=== PATIENT | male | born 1950 | race Caucasian/White ===

== ENCOUNTER 2017-04-13 14:08 | Inpatient (IN) | payer MEDICAID ==
--- NOTE | 2017-04-13 14:41 | ED Physician Chart ---
ED Chief Complaint/HPI - Patient Information Date Seen:: 04/13/17 Time Seen:: 14:30 Chief Complaint:: dislodged gastroesophageal stent History of Present Illness:: Patient sent here for a dislodged gastroesophageal stent. He states that he has been vomiting slightly. He does feed orally as well as having a G-tube. He states he has not received anything by G-tube in the last 4 days. Historian:: Patient Review:: Transfer documents Reviewed ED Review of Systems - Review of Systems General/Constitutional: No fever, No chills Skin: No skin lesions Head: No headache Eyes: No loss of vision ENT: No earache, No sore throat Neck: No neck pain, No thyromegaly Cardio Vascular: No chest pain Pulmonary: No SOB GI: Nausea, Vomiting G/U: No dysuria, No hematuria Musculoskeletal: No bone or joint pain Endocrine: No polyuria, No polydipsia Psychiatric: Prior psych history Hematopoietic: No bruising Allergic/Immuno: No urticaria Neurological: No syncope, No focal symptoms ED Past Medical History - Past Medical History Past Medical History: HTN, DM, Asthma/COPD, Dementia, Other (status post pneumonia; atherosclerotic heart disease; lung mass; protein/calorie malnutrition; prostate carcinoma; seizures; gastroparesis) Social History: Other (quit smoking in May2016; quit alcohol consumption 20 years ago) Surgical History: PEG/GTube, other (esophagus for bleeding) Psychiatricy History: Dementia Medication: Reviewed ED Physical Exam - Physical Examination Other Gen/Cons comments:: Patient is cachectic; in no acute distress Head: Atraumatic Eyes: Lids, conjuctiva normal, PERRL Skin: Nl inspection, No rash ENMT: External ears, nose nl Neck: No nuchal rigidity Respiratory: Nl effort/Exclusion, Clear to Auscultation Cardio Vascular: RRR, No murmur, gallop, rubs, NL S1 S2 GI: No tenderness/rebounding/guarding, No organomegaly, No hernia, Normal BS's, No mass/bruits, No McBurney tenderness : No CVA tenderness Extremities: No edema Neuro/Psych: No focal deficits ED Labs/Radiology/EKG Results - Lab Results Results: Laboratory Results - last 24 hr 04/13/17 04/13/17 04/13/17 14:41 14:41 14:41 WBC 10.4 RBC 4.15 Hgb 12.2 Hct 36.3 L MCV 87.5 MCH 29.5 MCHC Differential 33.7 RDW 15.9 Plt Count 389 MPV 7.9 Neutrophils % 74.9 Lymphocytes % 16.1 L Monocytes % 8.6 Eosinophils % 0.3 Basophils % 0.1 PT 10.8 INR 1.04 PTT (Actin FS) 26.3 Sodium 135 L Potassium 3.4 L Chloride 93 L Carbon Dioxide 36.3 H Anion Gap 9.1 BUN 44 H Creatinine 0.9 Est GFR ( Amer) > 60.0 Est GFR (Non-Af Amer) > 60.0 BUN/Creatinine Ratio 48.9 Glucose 116 H Calcium 9.9 Magnesium 2.5 - Radiology Results Results: Chest x-ray showed increased interstitial markings and possible 1 cm mass left base ED Septic Shock - . Is Septic Shock (SBP<90, OR Lactate>4 mmol\L) present?: No ED Reassessment (Disposition) - Reassessment Reassessment Condition:: Unchanged - Diagnosis Diagnosis:: Dehydration; hypokalemia; cachexia - Patient Disposition Admitted to:: Med/Surg Spoke to:: Jamil Singh Admitting Medical Physician:: Jamil Singh Condition at Disposition:: Stable, Unchanged
[2017-04-13 14:49] LABS: % BASOPHILS 0.1 % (0.0-2.0); % EOSINOPHILS 0.3 % (0.0-5.0); % LYMPHOCYTES 16.1 % (20.0-50.0); % MONOCYTES 8.6 % (2.0-10.0); % NEUTROPHILS 74.9 % (40.0-80.0); HEMATOCRIT 36.3 % (41.0-60); HEMOGLOBIN 12.2 gm/dL (12-16); MEAN CELL VOLUME 87.5 fl (80-99); MEAN CORPUSCULAR HEMOGLOBIN 29.5 pg (27.0-31.0); MEAN CORPUSCULAR HGB CONC 33.7 pg (28.0-36.0); MEAN PLATELET VOLUME 7.9 fl; NEUTROPHILE ABSOLUTE 7.8 Th/cmm (1.8-8.0); PLATELET COUNT 389 Th/cmm (150-400); RED BLOOD COUNT 4.15 Mil/cmm (3.80-5.80); RED CELL DISTRIBUTION WIDTH 15.9 % (11.5-20.0); WHITE BLOOD COUNT 10.4 Th/cmm (4.8-10.8)
[2017-04-13 15:01] LABS: INR 1.04 (0.5-1.4); PROTHROMBIN TIME (TEST) 10.8 SECONDS (9.5-11.5)
[2017-04-13 15:03] LABS: ANION GAP 9.1 (7.0-16.0); BUN - UREA NITROGEN 44 mg/dL (7-25); BUN/CREATININE RATIO 48.9; CALCIUM SERUM 9.9 mg/dL (8.6-10.3); CARBON DIOXIDE 36.3 mEq/L (21.0-31.0); CHLORIDE 93 mEq/L (98-107); CREATININE - SERUM 0.9 mg/dL (0.7-1.3); GLUCOSE 116 mg/dL (70-105); MAGNESIUM 2.5 mg/dL (1.9-2.7); POTASSIUM SERUM 3.4 mEq/L (3.5-5.1); SODIUM SERUM 135 mEq/L (136-145)
[2017-04-13] MEDS ORDERED: Sodium Chloride 0.9% 1,000 ML IV ONE ×2 (15:19→16:55)
--- NOTE | 2017-04-13 15:24 | Diagnostic Imaging Report ---
CHEST X-RAY: AP view INDICATION: Lung mass COMPARISON: None FINDINGS: Extensive COPD changes seen with mild fullness of the right hilar region and increased density seen along the infrahilar regions. There is increased density also seen along the lower mediastinal regions. Left basal pleural thickening is seen with faint calcifications. Heart size is normal. Atherosclerosis is noted. Degenerative changes of the spine are noted. IMPRESSION: Extensive COPD changes with fullness of the right hilar region. Underlying mass lesion cannot be excluded. Given patient's clinical history further assessment CT examination, preferably with IV contrast is recommended. Increased density right infrahilar region, etiology uncertain.. Findings may have been sequela of previous inflammatory process or possible previous treatment procedure. Other less likely etiologies would include old aspiration. Additional areas of increased density noted along the lower mediastinum again etiology uncertain. CT may also provide additional detail assessment Left basal pleural thickening calcifications. Atherosclerotic vascular disease.
[2017-04-13 20:35] VITALS: BP 90/57
[2017-04-13] MEDS: D5-0.45NS 1,000 ML IV SCH (20:44)
[2017-04-13] MEDS ORDERED: Morphine Sulfate 2 mg/mL 1mL Syr IM PRN (22:18)
[2017-04-13] MEDS ORDERED: Morphine Sulfate 4 mg/mL 1mL Syr IVP PRN (22:20)
[2017-04-14] MEDS: Morphine Sulfate 2 mg/mL 1mL Syr IVP PRN ×4 (00:11→20:15)
[2017-04-14] MEDS: D5-0.45NS 1,000 ML IV SCH ×2 (06:44→18:04)
--- NOTE | 2017-04-14 09:32 | Diagnostic Imaging Report ---
Upper GI series HISTORY: Nausea/vomiting Exam limited to overhead radiographs. The exam demonstrates a markedly dilated proximal and midportion of the thoracic esophagus. There is severe narrowing involving the distal portion of the esophagus. Neoplastic etiology cannot be excluded. Associated aspiration of barium noted into the right and to a lesser degree left bronchial tree regions. There is suggestion of intraluminal density in the upper esophagus that may be related to retained food. Incomplete distention of the stomach. No obvious focal or intraluminal abnormalities are seen. The duodenum and proximal small bowel are not well opacified. Incidentally noted are at the scarring calcination is in the aorta. Scoliosis and severe degenerative changes noted in the spine. Inferior vena cava filter also noted. IMPRESSION: 1. Markedly dilated proximal esophagus associated with severe stricture/narrowing of the distal esophagus. Neoplastic etiology cannot be excluded. 2. Marked aspiration 3. Atherosclerotic vascular changes
[2017-04-14] MEDS ORDERED: VTE Chemical Prophylaxis Screen/Admission MC PRN (10:36)
--- NOTE | 2017-04-14 11:08 | Diagnostic Imaging Report ---
Portable chest x-ray HISTORY: Aspiration Compared with prior exam of 04/13/2017, residual contrast (related to recent upper GI series) is noted within a dilated proximal esophagus. There is again demonstrated a relatively large segment of narrowing of the distal esophagus. Residual contrast noted within the right and left bronchial tree regions associated with aspiration. IMPRESSION: 1. Redemonstration of a dilated proximal esophagus associated with a relatively large segment of narrowing within the distal segment. Associated residual contrast within the right and to a lesser degree left bronchial tree consistent with aspiration.
[2017-04-14] MEDS ORDERED: Docusate Sodium 100 mg/10 mL UD GT PRN (15:57)
[2017-04-14] MEDS ORDERED: Fleet Enema 135 mL RC PRN (15:57)
[2017-04-14] MEDS ORDERED: GLUCAGON HCl 1 MG KIT IM PRN (15:57)
[2017-04-14] MEDS ORDERED: Magnesium Hydroxide (MOM) 30 mL UDC GT PRN (15:57)
--- NOTE | 2017-04-14 16:44 | History & Physical ---
ADMIT DATE: 04/13/2017 CHIEF COMPLAINT: The patient is a 66-year-old male, who presents here for dislodged gastroesophageal stent. The patient has been vomiting ____. The patient has been orally feeding ____ G-tube ____ over the last 4 days. ____. PAST MEDICAL HISTORY: Hypertension, diabetes, asthma, COPD, dementia, pneumonia, heart disease, lung mass, malnutrition, prostate carcinoma, seizure disorder, gastroparesis, dementia. SOCIAL HISTORY: Tobacco use, he quit in ____16, prior history of alcohol abuse ____. Denied IV drug abuse. PAST SURGICAL HISTORY: ____ placement. Esophageal stent placement. PHYSICAL EXAMINATION: GENERAL: The patient is awake, alert, nontoxic in appearance. VITAL SIGNS: On admission, temperature 99.6, pulse 107. ____ respirations 16, 94% on room air. HEENT: Normocephalic, atraumatic. Extraocular movements intact. Oropharynx is clear. NECK: Supple. No thyromegaly. CARDIOVASCULAR: S1, S2. No rubs or gallops. GASTROINTESTINAL: Soft, nontender. Positive bowel sounds. ____. BACK: No midline tenderness. EXTREMITIES: Equal pulses bilaterally. SKIN: Negative. PSYCHIATRIC: Negative. NEUROLOGIC: Intact ____. Neurovascular is intact bilateral extremities. LABORATORY DATA: Hematology: WBC 10.4, hemoglobin 10.2 ____ platelet count of 389. ____ PT 10.8, INR 1.04, ____. Chemistry: Sodium 135, potassium 3.4, chloride 92, bicarbonate 26, ____ BUN 44, creatinine 0.9, GFR is more than 60, glucose 115, calcium 9.9, mag is 2.5. MICROBIOLOGY: Negative. RADIOLOGY: Chest x-ray shows COPD, lung mass lesion could not be excluded. Recommend CT scan for ____ examination. ____ right infrahilar region, left basal pleural thickening, ____ disease. IMPRESSION AND PLAN: The patient admitted to medical/surgical unit. 1. Some cachexia, dehydration. 2. Hyponatremia. 3. Hypokalemia. 4. Azotemia. 5. Hyperglycemia. 6. Gastroesophageal stent malfunction. 7. Diabetes. 8. Asthma. 9. Chronic obstructive pulmonary disease. 10. Dementia. 11. ____ disease, lung mass. 12. Malnutrition. 13. Prostate carcinoma. 14. ____ and gastroparesis. PLAN: The patient will be admitted to medical/surgical unit ____. JOB# [id number]
[2017-04-14] MEDS: INSULIN ASPART SLIDING SCALE 100 UNITS/ML UNIT SUBQ SCH ×2 (17:55→20:31)
[2017-04-14] MEDS: Lactobacillus Rhamnosus 10 Billion CFU Capsule GT SCH (18:07)
[2017-04-14] MEDS ORDERED: DORNASE ALFA 2.5 MG IH SCH (19:00)
[2017-04-14] MEDS: Albuterol/Ipratropium Neb 3 ML AERS HHN SCH ×2 (19:18→23:15)
--- NOTE | 2017-04-14 23:27 | Consultation ---
DATE OF CONSULTATION: 04/14/2017 INPATIENT GASTROINTESTINAL CONSULTATION REFERRING PHYSICIAN: Dr. Singh. REASON FOR CONSULTATION: Nausea and vomiting. HISTORY OF PRESENT ILLNESS: This is a 66-year-old male who comes to the hospital with nausea and vomiting, somewhat a poor historian, but states that he has been able to eat by mouth everyday 3 times a day despite having a G-tube in place; however, he noticed that he is having difficulty swallowing and presented to the hospital for this reason. It is not clear why he has a G-tube and he cannot give me specific details. He did state that in the past, he had such for esophageal problems that it ruptured requiring an operation in [place]. PAST MEDICAL HISTORY: Hypertension, diabetes, asthma, COPD, dementia, pneumonia, lung disease, prostate cancer, seizure disorder, and gastroparesis. PAST SURGICAL HISTORY: PEG tube placement and esophageal repair. FAMILY HISTORY: Noncontributory. SOCIAL HISTORY: Former smoker, tobacco user. No IV drug usage. ALLERGIES: CODEINE and SULFA. CURRENT MEDICATIONS: Morphine and IV fluids. REVIEW OF SYSTEMS: Ten-point review of systems was performed and the pertinent positive was the nausea and vomiting. All other systems were otherwise negative. PHYSICAL EXAMINATION: VITAL SIGNS: Temperature 97.5, breathing 18, pulse of 75, blood pressure is 90/60, satting 96%. GENERAL: In no apparent distress. EYES: Anicteric and normal conjunctivae. HEENT: Normocephalic and atraumatic. Moist mucous membranes. NECK: Soft and supple. CHEST: Clear. No effort. CARDIOVASCULAR: Regular rate and rhythm. ABDOMEN: With a G-tube. SKIN: Warm and dry. EXTREMITIES: Reveal no cyanosis. PSYCHOLOGIC: Alert. LABORATORY DATA: Show white count of 10.4, hemoglobin 12.2, and platelets of 389,000. INR is 1.04. Upper GI series performed showed dilated proximal esophagus associated with severe stricture, narrowing of the distal esophagus, marked aspiration. IMPRESSION: This is a 66-year-old male with nausea, vomiting, likely related to having an esophageal stricture. The patient also has a G-tube, but he does not know why it was placed, and he does not know why they allowed him to eat by mouth. The upper GI series is concerning for the stricture, which could represent a neoplastic process versus inflammatory condition. Endoscopy can be performed. The patient also has some aspiration, so we will check his chest x-ray. PLAN: 1. Continue supportive care. 2. Get a chest x-ray. 3. Consider endoscopy early next week. 4. May consider using G-tube for feeding purposes in the meantime. Thank you for allowing me to participate. Please call me if you have any questions. JOB# [id number]
[2017-04-15] MEDS: Morphine Sulfate 2 mg/mL 1mL Syr IVP PRN ×3 (02:15→15:12)
[2017-04-15] MEDS: Albuterol/Ipratropium Neb 3 ML AERS HHN SCH ×6 (03:36→22:37)
[2017-04-15 06:01] LABS: % BASOPHILS 0.1 % (0.0-2.0); % EOSINOPHILS 0.6 % (0.0-5.0); % LYMPHOCYTES 15.8 % (20.0-50.0); % MONOCYTES 8.6 % (2.0-10.0); % NEUTROPHILS 74.9 % (40.0-80.0); MEAN CELL VOLUME 88.2 fl (80-99); MEAN CORPUSCULAR HEMOGLOBIN 29.8 pg (27.0-31.0); MEAN CORPUSCULAR HGB CONC 33.7 pg (28.0-36.0); MEAN PLATELET VOLUME 7.6 fl; NEUTROPHILE ABSOLUTE 5.5 Th/cmm (1.8-8.0); PLATELET COUNT 332 Th/cmm (150-400); RED CELL DISTRIBUTION WIDTH 15.4 % (11.5-20.0)
[2017-04-15 06:07] LABS: WHITE BLOOD COUNT 7.2 Th/cmm (4.8-10.8)
[2017-04-15 06:08] LABS: HEMOGLOBIN 10.1 gm/dL (12-16)
[2017-04-15 06:19] LABS: ANION GAP 5.8 (7.0-16.0); BUN - UREA NITROGEN 14 mg/dL (7-25); CALCIUM SERUM 8.5 mg/dL (8.6-10.3); CARBON DIOXIDE 30.1 mEq/L (21.0-31.0); CHLORIDE 102 mEq/L (98-107); CREATININE - SERUM 0.5 mg/dL (0.7-1.3); GLUCOSE 105 mg/dL (70-105); SODIUM SERUM 135 mEq/L (136-145)
[2017-04-15 06:23] LABS: POTASSIUM SERUM 2.9 mEq/L (3.5-5.1)
[2017-04-15] MEDS: INSULIN ASPART SLIDING SCALE 100 UNITS/ML UNIT SUBQ SCH ×4 (07:03→20:53)
[2017-04-15] MEDS: D5-0.45NS 1,000 ML IV SCH ×2 (07:16→23:28)
[2017-04-15] MEDS ORDERED: KCL 20mEq/100mL Premix 20 MEQ/100 ML PIGGYBACK IV SCH (07:38)
--- NOTE | 2017-04-15 08:46 | GI Progress Note ---
Subjective - Review of Systems Subjective: NO EVENTS Objective - Results Result Diagrams: 04/15/17 05:18 04/15/17 05:18 Recent Labs: Laboratory Last Values WBC 7.2 Th/cmm (4.8-10.8) D 04/15/17 05:18 RBC 3.40 Mil/cmm (3.80-5.80) L 04/15/17 05:18 Hgb 10.1 gm/dL (12-16) L D 04/15/17 05:18 Hct 30.0 % (41.0-60) L D 04/15/17 05:18 MCV 88.2 fl (80-99) 04/15/17 05:18 MCH 29.8 pg (27.0-31.0) 04/15/17 05:18 MCHC Differential 33.7 pg (28.0-36.0) 04/15/17 05:18 RDW 15.4 % (11.5-20.0) 04/15/17 05:18 Plt Count 332 Th/cmm (150-400) 04/15/17 05:18 MPV 7.6 fl 04/15/17 05:18 Neutrophils % 74.9 % (40.0-80.0) 04/15/17 05:18 Lymphocytes % 15.8 % (20.0-50.0) L 04/15/17 05:18 Monocytes % 8.6 % (2.0-10.0) 04/15/17 05:18 Eosinophils % 0.6 % (0.0-5.0) 04/15/17 05:18 Basophils % 0.1 % (0.0-2.0) 04/15/17 05:18 PT 10.8 SECONDS (9.5-11.5) 04/13/17 14:41 INR 1.04 (0.5-1.4) 04/13/17 14:41 PTT (Actin FS) 26.3 SECONDS (26.0-38.0) 04/13/17 14:41 Sodium 135 mEq/L (136-145) L 04/15/17 05:18 Potassium 2.9 mEq/L (3.5-5.1) L* 04/15/17 05:18 Chloride 102 mEq/L (98-107) 04/15/17 05:18 Carbon Dioxide 30.1 mEq/L (21.0-31.0) 04/15/17 05:18 Anion Gap 5.8 (7.0-16.0) L 04/15/17 05:18 BUN 14 mg/dL (7-25) 04/15/17 05:18 Creatinine 0.5 mg/dL (0.7-1.3) L 04/15/17 05:18 Est GFR ( Amer) > 60.0 ml/min (>90) 04/15/17 05:18 Est GFR (Non-Af Amer) > 60.0 ml/min 04/15/17 05:18 BUN/Creatinine Ratio 28.0 04/15/17 05:18 Glucose 105 mg/dL (70-105) 04/15/17 05:18 POC Glucose 95 MG/DL (70 - 105) 04/15/17 06:03 Calcium 8.5 mg/dL (8.6-10.3) L 04/15/17 05:18 Magnesium 2.5 mg/dL (1.9-2.7) 04/13/17 14:41 - Physical Exam Vitals and I&O: Vital Signs Temp 96.9 F 04/15/17 07:34 Pulse 70 04/15/17 07:34 Resp 18 04/15/17 07:34 BP 90/49 04/15/17 07:34 Pulse Ox 100 04/15/17 07:34 Intake & Output 04/14/17 04/15/17 04/15/17 18:59 06:59 18:59 Intake Total 1000 1000 Output Total 300 Balance 1000 700 Weight (lbs) 53.524 kg 58.967 kg Intake: Intake, IV Amount 1000 1000 D5-0.45NS 1,000 ml @ 100 1000 1000 mls/hr IV .Q10H [facility] Rx#: [id number] Oral 0 Output: Urine 300 Other: # Voids 1 # Bowel Movements 0 Active Medications: Current Medications Acetaminophen (Tylenol 650mg/20.3ml Suspension) 325 mg GT Q4HR PRN PRN Reason: Pain (Mild) Stop: 06/13/17 15:56 Acetaminophen/Hydrocodone Bitart ([place] 10 Mg/325 Mg) 1 tab GT Q4HR PRN PRN Reason: Pain (Severe) Stop: 06/13/17 15:56 Albuterol/Ipratropium (Duoneb Neb) 3 ml HHN Q4HRT [facility] Stop: 06/13/17 18:59 Last Admin: 04/15/17 07:07 Dose: 3 ml Ascorbic Acid (Vitamin C) 500 mg GT BID [facility] Stop: 06/13/17 16:59 Last Admin: 04/14/17 18:04 Dose: 500 mg Bisacodyl (Dulcolax 10 Mg Supp) 10 mg RC PRN PRN PRN Reason: Constipation Stop: 06/13/17 15:56 Dextrose (Glutose 40%) 37 gm PO PRN PRN PRN Reason: BS<60 Docusate Sodium (Colace) 100 mg GT BID PRN PRN Reason: Constipation Famotidine (Pepcid) 10 mg GT BID [facility] Stop: 06/13/17 16:59 Last Admin: 04/14/17 18:04 Dose: 10 mg Gabapentin (Neurontin) 100 mg PO TID [facility] Stop: 06/13/17 20:59 Last Admin: 04/14/17 20:16 Dose: Not Given Glucagon (Glucagen) 1 mg IM PRN PRN PRN Reason: hypoglycemia Heparin Sodium (Porcine) (Heparin) 5,000 units SUBQ Q12H [facility] Stop: 06/13/17 20:59 Last Admin: 04/14/17 20:14 Dose: 5,000 units Hydralazine HCl (Apresoline) 10 mg GT Q3HR PRN PRN Reason: BP MAINTENANCE (PER PROTOCOL) Stop: 06/13/17 15:56 Dextrose/Sodium Chloride (D5-0.45ns) 1,000 mls @ 100 mls/hr IV .Q10H [facility] Stop: 06/12/17 20:31 Last Admin: 04/15/17 07:16 Dose: 100 mls/hr Potassium Chloride (Potassium Chloride) 20 meq in 100 mls @ 50 mls/hr IV Q2H [facility] Stop: 04/15/17 11:37 Insulin Aspart (Novolog Insulin Sliding Scale) 0 units SUBQ ACHS [facility] PRN Reason: Protocol Stop: 06/13/17 16:29 Last Admin: 04/15/17 07:03 Dose: Not Given Lactobacillus Rhamnosus (Culturelle) 1 each GT DAILY [facility] Stop: 06/13/17 16:59 Last Admin: 04/14/17 18:07 Dose: 1 each Magnesium Hydroxide (Milk Of Magnesia) 30 ml GT DAILY PRN PRN Reason: Constipation Stop: 06/13/17 15:56 Metoclopramide HCl (Reglan) 10 mg PO Q6HR [facility] Stop: 06/13/17 17:59 Last Admin: 04/15/17 07:16 Dose: 10 mg Miscellaneous (Vte Chemical Prophylaxis Screen/ Admission) 1 ea MC PRN PRN PRN Reason: PROTOCOL Stop: 06/13/17 10:35 Miscellaneous (Acetaminophen/Pamabrom [Cramp Tablet]) 1 tab GT DAILY [facility] Stop: 06/14/17 08:59 Miscellaneous (Dornase Nick [Pulmozyme]) 2.5 mg IH Q6HRT [facility] Stop: 06/13/17 18:59 Morphine Sulfate (Morphine) 4 mg IVP Q6HR PRN PRN Reason: Severe Pain Stop: 06/12/17 22:19 Morphine Sulfate (Morphine) 2 mg IVP Q6HR PRN PRN Reason: MODERATE PAIN Stop: 06/12/17 22:17 Last Admin: 04/15/17 08:35 Dose: 2 mg Ondansetron HCl (Zofran Odt) 4 mg PO Q6H PRN PRN Reason: Nausea / Vomiting Stop: 06/13/17 15:59 Sodium Chloride (Saline Flush) 10 ml IV QSHIFT [facility] Stop: 06/13/17 19:59 Last Admin: 04/15/17 08:37 Dose: 10 ml Sodium Phosphate (Fleet Enema) 118 ml RC PRN PRN PRN Reason: Constipation Stop: 06/13/17 15:56 Assessment/Plan - Assessment Assessment: 66 YO MALE WITH DYSPHAGIA HAD G TUBE BUT APPARENTLY CLAIMS TO BE ABLE TO EAT BY MOUTH UGI SERIES SHOWS DISTAL ESOPHAGEAL STRICTURE PT POOR HX WE DO NOT KNOW WHY PT REQUIRED GT IN THE FIRST PLACE CXR SHOWED MILD ASPIRATION 1.CONT GT FEEDS 2.EGD NEXT WEEK
[2017-04-15] MEDS ORDERED: [UNRECOGNIZED DRUG - OTHER] GT SCH (09:00)
[2017-04-15] MEDS ORDERED: ACETAMINOPHEN GT SCH (09:00)
[2017-04-15] MEDS: Lactobacillus Rhamnosus 10 Billion CFU Capsule GT SCH (09:29)
[2017-04-15] MEDS ORDERED: SODIUM CHLORIDE 0.9% IV ONE (11:27)
[2017-04-15] MEDS ORDERED: LIDOCAINE IV ONE (11:27)
[2017-04-15] MEDS ORDERED: POTASSIUM CHLORIDE IV ONE (11:27)
[2017-04-15] MEDS ORDERED: Potassium Chloride Elixir 20 mEq /15 mL UDC GT ONE (12:07)
[2017-04-15] MEDS ORDERED: Sodium Chloride 0.9% 1,000 ML IV ONE (15:33)
[2017-04-16] MEDS: Albuterol/Ipratropium Neb 3 ML AERS HHN SCH ×6 (03:10→22:09)
[2017-04-16 06:20] LABS: ANION GAP 5.8 (7.0-16.0); BUN - UREA NITROGEN 12 mg/dL (7-25); CALCIUM SERUM 8.2 mg/dL (8.6-10.3); CARBON DIOXIDE 27.6 mEq/L (21.0-31.0); CHLORIDE 103 mEq/L (98-107); CREATININE - SERUM 0.5 mg/dL (0.7-1.3); GLUCOSE 121 mg/dL (70-105); POTASSIUM SERUM 3.4 mEq/L (3.5-5.1); SODIUM SERUM 133 mEq/L (136-145)
[2017-04-16 06:34] LABS: % BASOPHILS 0.3 % (0.0-2.0); % EOSINOPHILS 0.4 % (0.0-5.0); % LYMPHOCYTES 11.4 % (20.0-50.0); % MONOCYTES 8.1 % (2.0-10.0); % NEUTROPHILS 79.8 % (40.0-80.0); HEMOGLOBIN 9.5 gm/dL (12-16); MEAN CELL VOLUME 89.3 fl (80-99); MEAN CORPUSCULAR HEMOGLOBIN 29.3 pg (27.0-31.0); MEAN CORPUSCULAR HGB CONC 32.8 pg (28.0-36.0); MEAN PLATELET VOLUME 8.7 fl; NEUTROPHILE ABSOLUTE 5.3 Th/cmm (1.8-8.0); PLATELET COUNT 313 Th/cmm (150-400); RED BLOOD COUNT 3.25 Mil/cmm (3.80-5.80); RED CELL DISTRIBUTION WIDTH 15.6 % (11.5-20.0); WHITE BLOOD COUNT 6.6 Th/cmm (4.8-10.8)
[2017-04-16] MEDS: INSULIN ASPART SLIDING SCALE 100 UNITS/ML UNIT SUBQ SCH ×4 (06:58→21:54)
[2017-04-16] MEDS: Lactobacillus Rhamnosus 10 Billion CFU Capsule GT SCH (08:58)
[2017-04-16] MEDS: D5-0.45NS 1,000 ML IV SCH ×3 (09:13→21:48)
--- NOTE | 2017-04-16 09:18 | GI Progress Note ---
Subjective - Review of Systems Subjective: NO EVENTS Objective - Results Result Diagrams: 04/16/17 05:40 04/16/17 05:40 Recent Labs: Laboratory Last Values WBC 6.6 Th/cmm (4.8-10.8) 04/16/17 05:40 RBC 3.25 Mil/cmm (3.80-5.80) L 04/16/17 05:40 Hgb 9.5 gm/dL (12-16) L 04/16/17 05:40 Hct 29.0 % (41.0-60) L 04/16/17 05:40 MCV 89.3 fl (80-99) 04/16/17 05:40 MCH 29.3 pg (27.0-31.0) 04/16/17 05:40 MCHC Differential 32.8 pg (28.0-36.0) 04/16/17 05:40 RDW 15.6 % (11.5-20.0) 04/16/17 05:40 Plt Count 313 Th/cmm (150-400) 04/16/17 05:40 MPV 8.7 fl 04/16/17 05:40 Neutrophils % 79.8 % (40.0-80.0) 04/16/17 05:40 Lymphocytes % 11.4 % (20.0-50.0) L 04/16/17 05:40 Monocytes % 8.1 % (2.0-10.0) 04/16/17 05:40 Eosinophils % 0.4 % (0.0-5.0) 04/16/17 05:40 Basophils % 0.3 % (0.0-2.0) 04/16/17 05:40 PT 10.8 SECONDS (9.5-11.5) 04/13/17 14:41 INR 1.04 (0.5-1.4) 04/13/17 14:41 PTT (Actin FS) 26.3 SECONDS (26.0-38.0) 04/13/17 14:41 Sodium 133 mEq/L (136-145) L 04/16/17 05:40 Potassium 3.4 mEq/L (3.5-5.1) L 04/16/17 05:40 Chloride 103 mEq/L (98-107) 04/16/17 05:40 Carbon Dioxide 27.6 mEq/L (21.0-31.0) 04/16/17 05:40 Anion Gap 5.8 (7.0-16.0) L 04/16/17 05:40 BUN 12 mg/dL (7-25) 04/16/17 05:40 Creatinine 0.5 mg/dL (0.7-1.3) L 04/16/17 05:40 Est GFR ( Amer) > 60.0 ml/min (>90) 04/16/17 05:40 Est GFR (Non-Af Amer) > 60.0 ml/min 04/16/17 05:40 BUN/Creatinine Ratio 24.0 04/16/17 05:40 Glucose 121 mg/dL (70-105) H 04/16/17 05:40 POC Glucose 114 MG/DL (70 - 105) H 04/16/17 06:28 Calcium 8.2 mg/dL (8.6-10.3) L 04/16/17 05:40 Magnesium 2.5 mg/dL (1.9-2.7) 04/13/17 14:41 Troponin I < 0.01 ng/mL (0.01-0.05) L 04/15/17 12:26 - Physical Exam Vitals and I&O: Vital Signs Temp 97.7 F 04/16/17 07:52 Pulse 99 04/16/17 07:52 Resp 19 04/16/17 07:52 BP 96/50 04/16/17 07:52 Pulse Ox 98 04/16/17 07:52 Intake & Output 04/15/17 04/16/17 04/16/17 18:59 06:59 18:59 Intake Total 1340 800 975 Output Total 250 500 Balance 1090 300 975 Weight (lbs) 58.967 kg 53.524 kg Intake: Intake, IV Amount 1000 975 D5-0.45NS 1,000 ml @ 100 1000 975 mls/hr IV .Q10H [facility] Rx#: [id number] Tube Feeding 340 600 Other 200 Output: Urine 500 Emesis 250 Other: # Voids 4 Active Medications: Current Medications Acetaminophen (Tylenol 650mg/20.3ml Suspension) 325 mg GT Q4HR PRN PRN Reason: Pain (Mild) Stop: 06/13/17 15:56 Last Admin: 04/16/17 04:07 Dose: 325 mg Acetaminophen/Hydrocodone Bitart ([place] 10 Mg/325 Mg) 1 tab GT Q4HR PRN PRN Reason: Pain (Severe) Stop: 06/13/17 15:56 Albuterol/Ipratropium (Duoneb Neb) 3 ml HHN Q4HRT [facility] Stop: 06/13/17 18:59 Last Admin: 04/16/17 06:51 Dose: 3 ml Ascorbic Acid (Vitamin C) 500 mg GT BID [facility] Stop: 06/13/17 16:59 Last Admin: 04/16/17 08:58 Dose: 500 mg Bisacodyl (Dulcolax 10 Mg Supp) 10 mg RC PRN PRN PRN Reason: Constipation Stop: 06/13/17 15:56 Dextrose (Glutose 40%) 37 gm PO PRN PRN PRN Reason: BS<60 Docusate Sodium (Colace) 100 mg GT BID PRN PRN Reason: Constipation Famotidine (Pepcid) 10 mg GT BID [facility] Stop: 06/13/17 16:59 Last Admin: 04/16/17 08:58 Dose: 10 mg Gabapentin (Neurontin) 100 mg PO TID [facility] Stop: 06/13/17 20:59 Last Admin: 04/16/17 08:58 Dose: 100 mg Glucagon (Glucagen) 1 mg IM PRN PRN PRN Reason: hypoglycemia Heparin Sodium (Porcine) (Heparin) 5,000 units SUBQ Q12H [facility] Stop: 06/13/17 20:59 Last Admin: 04/16/17 08:59 Dose: 5,000 units Hydralazine HCl (Apresoline) 10 mg GT Q3HR PRN PRN Reason: BP MAINTENANCE (PER PROTOCOL) Stop: 06/13/17 15:56 Dextrose/Sodium Chloride (D5-0.45ns) 1,000 mls @ 100 mls/hr IV .Q10H [facility] Stop: 06/12/17 20:31 Last Admin: 04/16/17 09:13 Dose: 100 mls/hr Insulin Aspart (Novolog Insulin Sliding Scale) 0 units SUBQ ACHS [facility] PRN Reason: Protocol Stop: 06/13/17 16:29 Last Admin: 04/16/17 06:58 Dose: Not Given Lactobacillus Rhamnosus (Culturelle) 1 each GT DAILY [facility] Stop: 06/13/17 16:59 Last Admin: 04/16/17 08:58 Dose: 1 each Magnesium Hydroxide (Milk Of Magnesia) 30 ml GT DAILY PRN PRN Reason: Constipation Stop: 06/13/17 15:56 Metoclopramide HCl (Reglan) 10 mg PO Q6HR [facility] Stop: 06/13/17 17:59 Last Admin: 04/16/17 06:10 Dose: 10 mg Miscellaneous (Vte Chemical Prophylaxis Screen/ Admission) 1 ea MC PRN PRN PRN Reason: PROTOCOL Stop: 06/13/17 10:35 Morphine Sulfate (Morphine) 4 mg IVP Q6HR PRN PRN Reason: Severe Pain Stop: 06/12/17 22:19 Morphine Sulfate (Morphine) 2 mg IVP Q6HR PRN PRN Reason: MODERATE PAIN Stop: 06/12/17 22:17 Last Admin: 04/15/17 15:12 Dose: 2 mg Mupirocin (Bactroban Oint) 1 appl NS BID [facility] Stop: 04/20/17 09:01 Last Admin: 04/16/17 09:00 Dose: 1 appl Ondansetron HCl (Zofran Odt) 4 mg PO Q6H PRN PRN Reason: Nausea / Vomiting Stop: 06/13/17 15:59 Sodium Chloride (Saline Flush) 10 ml IV QSHIFT [facility] Stop: 06/13/17 19:59 Last Admin: 04/16/17 09:01 Dose: 10 ml Sodium Phosphate (Fleet Enema) 118 ml RC PRN PRN PRN Reason: Constipation Stop: 06/13/17 15:56 Assessment/Plan - Assessment Assessment: 66 YO MALE WITH DYSPHAGIA HAS G TUBE BUT APPARENTLY CLAIMS TO BE ABLE TO EAT BY MOUTH UGI SERIES SHOWS DISTAL ESOPHAGEAL STRICTURE PT POOR HX WE DO NOT KNOW WHY PT REQUIRED GT IN THE FIRST PLACE CXR SHOWED MILD ASPIRATION 1.CONT GT FEEDS 2.EGD THIS WEEK
[2017-04-16 10:05] LABS: INR 1.06 (0.5-1.4)
[2017-04-17] MEDS: Hydrocodone/APAP 10 mg/325 mg Tab GT PRN ×4 (01:22→23:25)
[2017-04-17] MEDS: Albuterol/Ipratropium Neb 3 ML AERS HHN SCH ×6 (02:55→23:02)
[2017-04-17 06:31] LABS: % BASOPHILS 0.3 % (0.0-2.0); % EOSINOPHILS 0.7 % (0.0-5.0); % LYMPHOCYTES 13.2 % (20.0-50.0); % MONOCYTES 11.2 % (2.0-10.0); % NEUTROPHILS 74.6 % (40.0-80.0); HEMATOCRIT 27.8 % (41.0-60); HEMOGLOBIN 9.2 gm/dL (12-16); MEAN CELL VOLUME 88.9 fl (80-99); MEAN CORPUSCULAR HEMOGLOBIN 29.4 pg (27.0-31.0); MEAN CORPUSCULAR HGB CONC 33.1 pg (28.0-36.0); MEAN PLATELET VOLUME 7.2 fl; NEUTROPHILE ABSOLUTE 4.1 Th/cmm (1.8-8.0); PLATELET COUNT 325 Th/cmm (150-400); RED BLOOD COUNT 3.13 Mil/cmm (3.80-5.80); RED CELL DISTRIBUTION WIDTH 16.2 % (11.5-20.0); WHITE BLOOD COUNT 5.4 Th/cmm (4.8-10.8)
[2017-04-17] MEDS: INSULIN ASPART SLIDING SCALE 100 UNITS/ML UNIT SUBQ SCH ×3 (06:42→17:05)
[2017-04-17 06:53] LABS: ALB/GLOB RATIO 0.8 (1.0-1.8); ALKALINE PHOSPHATASE 53 U/L (34-104); ANION GAP 6.5 (7.0-16.0); BILIRUBIN,TOTAL 0.2 mg/dL (0.3-1.0); BUN - UREA NITROGEN 12 mg/dL (7-25); CALCIUM SERUM 8.4 mg/dL (8.6-10.3); CARBON DIOXIDE 27.3 mEq/L (21.0-31.0); CHLORIDE 102 mEq/L (98-107); CREATININE - SERUM 0.5 mg/dL (0.7-1.3); GLUCOSE 98 mg/dL (70-105); POTASSIUM SERUM 3.8 mEq/L (3.5-5.1); SGOT 11 U/L (13-39); SGPT/ALT 10 U/L (7-52); SODIUM SERUM 132 mEq/L (136-145)
[2017-04-17] MEDS: D5-0.45NS 1,000 ML IV SCH ×2 (07:07→17:08)
[2017-04-17] MEDS: Lactobacillus Rhamnosus 10 Billion CFU Capsule GT SCH (09:40)
[2017-04-17] MEDS ORDERED: Morphine Sulfate 4 mg/mL 1mL Syr IVP PRN (10:05)
[2017-04-17] MEDS ORDERED: Sodium Chloride 0.9% 1,000 ML IV ONE (18:41)
[2017-04-18] MEDS: INSULIN ASPART SLIDING SCALE 100 UNITS/ML UNIT SUBQ SCH ×3 (00:07→11:40)
[2017-04-18] MEDS: Albuterol/Ipratropium Neb 3 ML AERS HHN SCH ×4 (02:31→14:16)
[2017-04-18 05:30] LABS: % BASOPHILS 0.3 % (0.0-2.0); % EOSINOPHILS 0.9 % (0.0-5.0); % LYMPHOCYTES 16.3 % (20.0-50.0); % MONOCYTES 12.3 % (2.0-10.0); % NEUTROPHILS 70.2 % (40.0-80.0); HEMATOCRIT 29.2 % (41.0-60); HEMOGLOBIN 9.8 gm/dL (12-16); MEAN CELL VOLUME 87.8 fl (80-99); MEAN CORPUSCULAR HEMOGLOBIN 29.6 pg (27.0-31.0); MEAN CORPUSCULAR HGB CONC 33.7 pg (28.0-36.0); MEAN PLATELET VOLUME 7.3 fl; NEUTROPHILE ABSOLUTE 3.7 Th/cmm (1.8-8.0); PLATELET COUNT 328 Th/cmm (150-400); RED BLOOD COUNT 3.32 Mil/cmm (3.80-5.80); RED CELL DISTRIBUTION WIDTH 15.8 % (11.5-20.0); WHITE BLOOD COUNT 5.3 Th/cmm (4.8-10.8)
[2017-04-18 05:58] LABS: ANION GAP 6.6 (7.0-16.0); BUN - UREA NITROGEN 11 mg/dL (7-25); CALCIUM SERUM 8.4 mg/dL (8.6-10.3); CARBON DIOXIDE 26.2 mEq/L (21.0-31.0); CHLORIDE 102 mEq/L (98-107); CREATININE - SERUM 0.5 mg/dL (0.7-1.3); GLUCOSE 94 mg/dL (70-105); POTASSIUM SERUM 3.8 mEq/L (3.5-5.1); SODIUM SERUM 131 mEq/L (136-145)
[2017-04-18] MEDS: D5-0.45NS 1,000 ML IV SCH ×2 (06:17→11:30)
--- NOTE | 2017-04-18 08:01 | Progress Notes ---
DATE: 04/16/2017 SUBJECTIVE: The patient is awake, alert. The patient is on tube feedings. The patient is on IV fluids. OBJECTIVE: VITAL SIGNS: Temperature 97.7, pulse 99, blood pressure 96/50, respirations 19, O2 sat 98% on room air. CARDIOVASCULAR: S1 and S2. RESPIRATORY: Clear. ABDOMEN: Soft. Positive bowel sounds. LABORATORY DATA: WBC 6.6, hemoglobin 9.5. hematocrit 29, platelet count of 313, and 11% lymphocytes. PT 11, INR 1.06. Chemistry: Sodium 133, potassium 3.4, chloride 103, bicarb 27, anion gap 5.8, BUN 12, creatinine 0.5, GFR is 160, glucose 121, calcium is 8.2. Microbiology: MRSA screen from 04/13 positive. ASSESSMENT: Methicillin-resistant Staphylococcus aureus colonization, anemia, hyponatremia, hyperkalemia, hyperglycemia, hypercalcemia, gastroesophageal malfunction, diabetes mellitus, asthma, chronic obstructive pulmonary disease, dementia, protein-calorie malnutrition, history of prostate cancer, dysphagia, seizure disorder, history of gastroparesis, atherosclerotic heart disease, hypertension, history of tobacco abuse, history of alcohol abuse, status post gastrostomy tube. PLAN: Continue current medication and treatment. Obtain labs in a.m. The patient planned for endoscopy tomorrow. JOB# [id number]
[2017-04-18] MEDS ORDERED: Lactated Ringer 1,000 ML IV SCH (08:45)
[2017-04-18] MEDS ORDERED: Albuterol/Ipratropium Neb 3 ML AERS HHN ONE (09:50)
--- NOTE | 2017-04-18 10:00 | Progress Notes ---
DATE: 04/15/2017 SUBJECTIVE: The patient is awake and alert. The patient complains of chest pain. Per recommendation form GI, the patient has been made NPO and planned for endoscopy on Monday. The patient continues on tube feedings. The patient is on IV fluids. OBJECTIVE: VITAL SIGNS: Temperature is 98.7, pulse 84, blood pressure 100/53, respiratory rate 18, and O2 sat is 100% on room air. CARDIOVASCULAR: S1 and S2. RESPIRATORY: Clear. GASTROINTESTINAL: Soft. Positive bowel sounds. LABORATORY DATA: Hematology 7.2, hemoglobin 10.1, hematocrit 30.0, platelet count of 332, 15% lymphocytes. Chemistry: Sodium 135, potassium 2.9, chloride 102, bicarbonate 30, anion gap 5.8, BUN 14, creatinine 0.5, GFR 160, glucose is 105, ____. MICROBIOLOGY: MR screening from 04/14 positive. RADIOLOGIC TESTS: Chest x-ray shows ____ dilated proximal esophagus associated with ____ narrowing within the distal segment associated with residual contrast within the right ____ to a lesser degree, left bronchial tree consistent with aspiration. Upper GI series shows marked dilated proximal esophagus associated with severe stricture/narrowing in the distal esophagus ____ cannot be excluded, marked aspiration, atherosclerotic vascular changes. ASSESSMENT: 1. Methicillin-resistant Staphylococcus aureus colonization. 2. Anemia. 3. Hyponatremia. 4. Hypokalemia. 5. Hypocalcemia. 6. Chest pain. 7. Severe cachexia. 8. Dehydration. 9. Gastroesophageal stent malfunction. 10. Diabetes mellitus. 11. Asthma. 12. Chronic obstructive pulmonary disease. 13. Dementia. 14. History of prostate carcinoma. 15. ____. 16. Atherosclerotic heart disease. 17. History of lung mass. 18. Protein-calorie malnutrition. 19. Seizure disorder. 20. Gastroparesis. 21. Status post gastrostomy tube. PLAN: Continue current treatment and medication. Obtain labs in a.m. ____. We will replace potassium. The patient is scheduled for endoscopy on Monday. JOB# [id number]
[2017-04-18] MEDS: Lactobacillus Rhamnosus 10 Billion CFU Capsule GT SCH (10:25)
--- NOTE | 2017-04-18 10:53 | Operative Report ---
DATE OF SURGERY: 04/18/2017 PROCEDURE: 1. Esophagogastroduodenoscopy with balloon dilation of esophageal stricture to 10 mm. 2. Esophagogastroduodenoscopy with a change of G-tube. INDICATION FOR PROCEDURE: Dysphagia. The patient has a G-tube, but he also had esophageal stricture, so this procedure was done for dilation since the patient wanted to eat. CONSENT: Informed consent was obtained from the patient after outlining benefits and risks including infection, bleeding, perforation, and . ANESTHESIA USED: Propofol. PREOPERATIVE DIAGNOSIS: Dysphagia. POSTOPERATIVE DIAGNOSES: 1. Esophageal stricture, status post dilation to 10 mm balloon. 2. Dysphagia status post change of G-tube from size 16-[facility] [place]ian to 20-[facility] [place]ian. DESCRIPTION OF PROCEDURE: The patient was sedated and placed in left lateral position. Upper Olympus endoscope was introduced through the mouth and advanced through the esophagus, which was intubated under direct visualization. Esophageal mucosa was examined on the way down, and at 35 cm there was a very tight stricture. Scope could not go through it. There was some food retained in the esophagus. We inserted the balloon, then inflated to size 8 mm, then 9 mm, then 10 mm, but we could not go with the scope. We inflated it again, but again the scope would not go through possibly because of irregularity in the lumen or not able to align the scope with the lumen, but again we did not want to cause any damage by pushing it forcibly. So, scope was then withdrawn and then a pediatric tiny scope was inserted and it went easily through the area. The stricture itself was about 4 cm. This led to a hiatal hernia. In the stomach, we could see the G-tube, which was a balloon, it was almost deflated it was pulled against the wall. Scope was advanced through the pylorus to the duodenum where the bulb and second part were examined and they were both normal. Scope was then withdrawn to the stomach and retroflexed to examine the cardia and fundus showed the hiatal hernia. Then, the balloon was deflated and the G-tube was pulled out, then a new G-tube was inserted through the old size 20, and balloon was secured in place. Scope was then withdrawn while examining the esophageal stricture one more time. The patient tolerated the procedure well. It did not seem there is any immediate complication. RECOMMENDATIONS: 1. Switch from Pepcid to Protonix 40 mg b.i.d. 2. N.p.o. completely, but okay to use G-tube. 3. Repeat endoscopy with further dilation in 2 weeks. Thank you, Dr. Singh, for allowing me to participate in the care of this patient. If you have any further questions, please let me know. JOB# [id number]
--- NOTE | 2017-04-18 20:52 | Progress Notes ---
DATE: 04/17/2017 SUBJECTIVE: The patient is awake, alert. The patient is on clear liquid diet. The patient is on IV fluids. The patient planned for EGD in a.m. VITAL SIGNS: Temperature 98, pulse 81, blood pressure 83/55, respiratory rate 16, O2 sat 76% on room air. RESPIRATORY: Clear. ABDOMEN: Soft. Positive bowel sounds. LABORATORY DATA: Hematology 5.4, hemoglobin 9.2, hematocrit 27.8, platelet count of ____ lymphocytes, 9% monocytes. Chemistry: Sodium 132, potassium 3.8, chloride 102, bicarbonate 26, anion gap 6.5, BUN 12, creatinine 0.5. GFR is 160, glucose 98, calcium 8.4. Total bili 0.2, AST 11, ALT is 10, alkaline phosphatase ____ albumin 2.5, globulin 3.0. Microbiology: MRSA screen from 04/13/2017 positive. ASSESSMENT: 1. Methicillin-resistant Staphylococcus aureus colonization. 2. Hypotension. 3. Anemia. 4. Hyponatremia. 5. Hypercalcemia. 6. Hypoalbuminemia. 7. Protein-calorie malnutrition, severe. 8. Dysphagia. 9. Esophageal stricture. 10. Gastroesophageal stent malfunction. 11. Diabetes mellitus. 12. Asthma. 13. Chronic obstructive pulmonary disease. 14. Dementia. 15. Atherosclerotic heart disease. 16. History of lung mass. 17. Gastroparesis. 18. History of prostate cancer. PLAN: Continue current medication and treatment. Obtain labs in a.m. The patient planned for endoscopy in a.m. We will order 1 L normal saline bolus for the patient's low blood pressure. JOB# [id number]
[2017-04-18 22:40] LABS: PROTHROMBIN TIME (TEST) 10.4 SECONDS (9.5-11.5)
--- NOTE | 2017-04-19 12:03 | Progress Notes ---
DATE: 04/18/2017 SUBJECTIVE: The patient is awake, alert. The patient is on tube feeds. The patient is on IV fluids. The patient underwent an EGD today. VITAL SIGNS: Temperature 97.7, pulse 81, blood pressure 96/59, respiratory rate 17, O2 sat 100% on room air. RESPIRATORY: Clear. ABDOMEN: Soft. Positive bowel sounds. LABORATORY DATA: White blood count is 5.3, hemoglobin 9.2, hematocrit 27.8, platelet count of 328. ____Lymphocytes, ____ % monocytes. Chemistry: Sodium 131, potassium 3.8, chloride 102, bicarbonate 26, anion gap 6.6, BUN 11, creatinine 0.5. GFR is more than 160, glucose 94, calcium 8.4. Microbiology: MRSA screen from 04/13/2017 positive. EGD report shows somewhat stricture and dysphagia ASSESSMENT: 1. Methicillin-resistant Staphylococcus aureus colonization. 2. Anemia. 3. Gastroesophageal stent malfunction. 4. Dysphagia. 5. Esophageal stricture. 6. Diabetes mellitus. 7. Asthma. 8. Chronic obstructive pulmonary disease. 9. Dementia. 10. History of prostate cancer. 11. Seizure disorder. 12. Atherosclerotic heart disease. PLAN: Continue current medication and treatment. Per discussion with GI, the patient will require to repeat EGD and dilation and ____. The patient will be ____ today. JOB# [id number]
== END 2017-04-18 14:45 | disposition home or self-care (01) | DRG 813 ==
LOC: ER 14:08 → MSI 17:15
PROVIDERS: ADMIT Preventive Medicine Preventive Medicine/Occupational Environmental Medicine; ATTEND Preventive Medicine Preventive Medicine/Occupational Environmental Medicine
PROC: 0D758ZZ Dilation of Esophagus, Via Natural or Artificial Opening Endoscopic (ICD-10-PCS; principal; 2017-04-18)
PROC: 0D20XUZ Change Feeding Device in Upper Intestinal Tract, External Approach (ICD-10-PCS; 2017-04-18)
DX: T85.528A Displacement of other gastrointestinal prosthetic devices, implants and grafts, initial encounter (principal); E43 Unspecified severe protein-calorie malnutrition; R64 Cachexia; I95.9 Hypotension, unspecified; K31.84 Gastroparesis; E87.1 Hypo-osmolality and hyponatremia; E11.65 Type 2 diabetes mellitus with hyperglycemia; J44.9 Chronic obstructive pulmonary disease, unspecified; F03.90 Unspecified dementia, unspecified severity, without behavioral disturbance, psychotic disturbance, mood disturbance, and anxiety; E11.43 Type 2 diabetes mellitus with diabetic autonomic (poly)neuropathy; K22.2 Esophageal obstruction; E86.0 Dehydration; E87.6 Hypokalemia; I10 Essential (primary) hypertension; K44.9 Diaphragmatic hernia without obstruction or gangrene; I25.10 Atherosclerotic heart disease of native coronary artery without angina pectoris; G40.909 Epilepsy, unspecified, not intractable, without status epilepticus; D64.9 Anemia, unspecified; E83.51 Hypocalcemia; R07.9 Chest pain, unspecified; R13.10 Dysphagia, unspecified; E88.09 Other disorders of plasma-protein metabolism, not elsewhere classified; Y83.8 Other surgical procedures as the cause of abnormal reaction of the patient, or of later complication, without mention of misadventure at the time of the procedure; Y92.89 Other specified places as the place of occurrence of the external cause; Z85.46 Personal history of malignant neoplasm of prostate; Z87.891 Personal history of nicotine dependence; Z88.5 Allergy status to narcotic agent; Z88.2 Allergy status to sulfonamides; Z93.1 Gastrostomy status; Z68.21 Body mass index [BMI] 21.0-21.9, adult; Z22.322 Carrier or suspected carrier of Methicillin resistant Staphylococcus aureus
CPT/HCPCS: 36415-UA; 71010-TC; 80048-TC; 80053-TC; 82948-90; 83735-TC; 84484-TC; 85025-TC; 85610-TC; 85730-TC; 93005; 94760; 97530; J1644; J1815; J2001; J2270; J2405; J2704; J3480; J7030; J7040; X3904; Z7506; Z7610